=== PATIENT | female | born 1995 | race American Indian/Alaskan Native ===

== ENCOUNTER 2022-01-09 06:05 | Emergency (ER) | payer OTHER ==
--- NOTE | 2022-01-09 07:53 | Emergency Department Report ---
Minor Respiratory - HPI Chief Complaint: Sore Throat Stated Complaint: sore throat Time Seen by Provider: 01/09/22 07:52 Duration: 2 Days Pain Location: Facial Severity: mild Minor Respiratory: Yes Sore Throat, Yes Able to Tolerate Fluids, Yes Fever, No Rhinorrhea, No Ear Pain, No Cough, No Sick Contacts, No Hemoptysis, No Chest Pain, No Shortness of Breath Other History: Patient is a 26-year-old that comes to the emergency room with sore throat. She reports fever. She has low-grade fever in the ER. ABCs are intact. Vital signs are stable. No chest pain or shortness of breath. She denies chills. She is ambulatory, nontoxic and [id number] on arrival to triage. ED Review of Systems ROS: Stated complaint: COVID SYMPTONS Other details as noted in HPI Comment: All other systems reviewed and negative ED Past Medical Hx - Past Medical History Previous Medical History?: No - Surgical History Past Surgical History?: No - Family History Family history: no significant - Social History Smoking Status: Never Smoker Substance Use Type: None - Medications Home Medications: Home Medications Medication Instructions Recorded Confirmed Last Taken Type Acetaminophen [Acetaminophen 8 650 mg PO Q8H PRN #25 tablet.er 01/09/22 Unknown Rx Hour] Amoxicillin [Trimox CAP] 500 mg PO BID #20 capsule 01/09/22 Unknown Rx Minor Respiratory Exam - Exam General: Vital signs noted. No distress. Alert and acting appropriately. HEENT: Yes Pharyngeal Erythema, Yes Pharyngeal Exudates, Yes Moist Mucous Membranes, No Rhinorrhea, No Conjuctival Injection, No Frontal Tenderness, No Maxillary Tenderness Ear: Neither TM Bulge, Neither TM Erythema, Neither EAC Pain, Neither EAC Discharge Neck: Yes Supple, No Adenopathy Lungs: Yes Good Air Exchange, No Wheezes, No Ronchi, No Stridor, No Cough, No Labored Respirations, No Retractions, No Use of Accessory Muscles, No Other Abnormal Lung Sounds Heart: Yes Regular, No Murmur Abdomen: Yes Normal Bowel Sounds, No Tenderness, No Peritoneal Signs Skin: No Rash, No Edema Neurologic: Alert and oriented, no deficits. Musculoskeletal: Unremarkable. ED Course Vital Signs 01/09/22 06:08 Temperature 99.6 F Pulse Rate 104 H Respiratory 16 Rate Blood Pressure 137/78 [Right] O2 Sat by Pulse 98 Oximetry ED Medical Decision Making - Medical Decision Making Vital Signs 01/09/22 06:08 Temperature 99.6 F Pulse Rate 104 H Respiratory 16 Rate Blood Pressure 137/78 [Right] O2 Sat by Pulse 98 Oximetry Patient is being prescribed amoxicillin and Tylenol/Motrin for her pharyngitis. Patient is taking p.o. Patient being discharged home with discharge plan of care including diet, activity, medications and follow-up. She verbalizes understanding of discharge plan of care. - Differential Diagnosis Pharyngitis/abscess/exudative pharyngitis/URI Critical care attestation.: If time is entered above; I have spent that time in minutes in the direct care of this critically ill patient, excluding procedure time. ED Disposition Clinical Impression: Pharyngitis Qualifiers: Pharyngitis/tonsillitis etiology: unspecified etiology Qualified Code(s): J02.9 - Acute pharyngitis, unspecified Fever Qualifiers: Fever type: unspecified Qualified Code(s): R50.9 - Fever, unspecified Disposition: 01 HOME / SELF CARE / HOMELESS Is pt being admited?: No Does the pt Need Aspirin: No Condition: Stable Instructions: Pharyngitis Additional Instructions: Medications as ordered today. Follow-up with PCP in 1 week to make sure you are getting better. Referral below. Stay well-hydrated with water. Prescriptions: Acetaminophen [Acetaminophen 8 Hour] 650 mg PO Q8H PRN #25 tablet.er PRN Reason: Pain , Severe (7-10) Amoxicillin [Trimox CAP] 500 mg PO BID #20 capsule Referrals: KEIRY SERRANO MD [Staff Physician] - 3-5 Days Time of Disposition: 08:25
[2022-01-09 09:17] VITALS: BP 109/78
== END 2022-01-09 09:17 | disposition home or self-care (01) ==
LOC: ED 06:05
DX: J02.9 Acute pharyngitis, unspecified (principal); R50.9 Fever, unspecified
CPT/HCPCS: 99283